=== PATIENT | male | born 1990 | race Caucasian/White ===

== ENCOUNTER 2023-09-24 18:55 | Emergency (ER) | payer OTHER ==
[2023-09-24] MEDS: Acetaminophen 325 MG Tab PO ONE (19:48)
[2023-09-24] MEDS: Ibuprofen 800 MG Tab PO ONE (19:48)
== END 2023-09-24 19:57 | disposition home or self-care (01) ==
LOC: JD.ED 18:55
DX: S93.402A Sprain of unspecified ligament of left ankle, initial encounter (principal); X50.1XXA Overexertion from prolonged static or awkward postures, initial encounter
CPT/HCPCS: 73610; 99283; A9270